=== PATIENT | male | born 1960 | race Caucasian/White ===

== ENCOUNTER 2018-10-07 09:25 | Emergency (ER) | payer BC, OTHER ==
[~2018-10-07] VITALS: Ht 165.1 cm; Wt 85.3 kg
[~2018-10-07 09:25] MED LIST: HYDR-4209 PO; IBUP200C5 PO
--- NOTE | 2018-10-07 09:41 | NUR ---
PT BIB SELF C/O WORSENING R FLANK PAIN FOR 3 DAYS, PT IS AAOX4, NOT IN RESPIRATORY DISTRESS, HOOKED TO MONITOR, KEPT RESTED AND COMFORTABLE, WILL CONTINUE TO MONITOR.
--- NOTE | 2018-10-07 09:57 | NUR ---
SEEN AND EXAMINED BY .
[2018-10-07] MEDS ORDERED: KETOROLAC TROMETHAMINE INJ 30 MG/ML VIAL IV ONE (10:00)
[2018-10-07] MEDS ORDERED: ONDANSETRON HCL/PF 4 MG/2 ML VIAL IVP ONE (10:00)
[2018-10-07] MEDS ORDERED: KETOROLAC TROMETHAMINE 15 MG/ML VIAL ONE (10:00)
[2018-10-07] MEDS ORDERED: IV NS 0.9% 1,000 ML BAG IV ONE (10:00)
[2018-10-07] MEDS ORDERED: MORPHINE SULFATE INJ 2 MG/ML DISP.SYRIN IV ONE (10:00)
--- NOTE | 2018-10-07 10:00 | NUR ---
IV LINE ESTABLISHED, BLOOD DRAWNED AND SENT TO LAB.
[2018-10-07] MEDS ORDERED: ONDANSETRON HCL/PF 4 MG/2 ML VIAL ONE (10:01)
[2018-10-07] MEDS ORDERED: MORPHINE SULFATE INJ 4 MG/ML DISP.SYRIN ONE (10:01)
--- NOTE | 2018-10-07 10:07 | NUR ---
URINE SPECIMEN PROVIDE BUT UNABLE TO PROVIDE URINE SPECIMEN.
[2018-10-07 10:09] LABS: BASOPHILS % (AUTO) 0.5 % (0.0-2.0); EOSINOPHILS % (AUTO) 0.9 % (0.0-6.0); HEMATOCRIT 42 % (39-51); HEMOGLOBIN 14.9 g/dL (13.5-17.5); LYMPHOCYTES # (AUTO) 2.4 /CMM (0.8-4.8); LYMPHOCYTES % (AUTO) 27.9 % (20.0-44.0); MEAN CORPUSCULAR HGB CONC 36 g/dl (31.0-36.0); MEAN CORPUSCULAR VOLUME 89 fL (80-96); MONOCYTES # (AUTO) 0.5 /CMM (0.1-1.30); MONOCYTES % (AUTO) 5.6 % (2.0-12.0); NEUTROPHILS # (AUTO) 5.5 /CMM (1.8-8.9); NEUTROPHILS % (AUTO) 65.1 % (43.0-81.0); PLATELET COUNT (AUTO) 206 /CMM (150-450); RED BLOOD CELL COUNT(AUTO) 4.69 MIL/uL (4.5-6.0); WHITE BLOOD COUNT (AUTO) 8.5 K/uL (4.3-11.0)
--- NOTE | 2018-10-07 10:16 | NUR ---
PT IS WHEELED TO CT SCAN VIA WHEELCHAIR.
[2018-10-07 10:20] LABS: CALCIUM, SERUM 9.1 mg/dL (8.5-10.1); CARBON DIOXIDE 29 mmol/L (21-32); CHLORIDE 101 mmol/L (98-107); CREATININE 1.1 mg/dL (0.6-1.3); GLUCOSE 130 mg/dL (74-106); POTASSIUM 3.3 mmol/L (3.5-5.1); SODIUM SERUM 138 mmol/L (136-145); UREA NITROGEN, BLOOD 17 mg/dL (7-18)
[2018-10-07 10:25] LABS: ALANINE AMINOTRANSFERASE 28 U/L (12-78); ALBUMIN 4.2 g/dL (3.4-5.0); ALKALINE PHOSPHATASE 123 U/L (46-116); ASPARTATE AMINOTRANSFERASE 23 U/L (15-37); BILIRUBIN,DIRECT 0.1 mg/dL (0.0-0.2); BILIRUBIN,TOTAL 0.6 mg/dL (0.2-1.0); LIPASE 121 U/L (73-393); TOTAL PROTEIN, SERUM 7.1 g/dL (6.4-8.2)
--- NOTE | 2018-10-07 10:30 | NUR ---
URINE SPECIMEN COLLECTED AND SENT TO LAB.
--- NOTE | 2018-10-07 10:39 | NUR ---
WAREHOUSE RECEIVING CLERK AT BEDSIDE FOR US.
[2018-10-07 10:46] LABS: APPEARANCE,URINE Clear (CLEAR); BILIRUBIN,URINE Negative (NEGATIVE); BLOOD, URINE Negative Ery/uL (NEGATIVE); COLOR,URINE Yellow (YELLOW); KETONES,URINE Negative (NEGATIVE); LEUKOCYTE ESTERASE ,URINE Negative (NEGATIVE); NITRITE, URINE Negative (NEGATIVE); PH,URINE 5.5 (5.0-8.0); PROTEIN,URINE Negative (NEGATIVE); UGLUCOSE Negative (NEGATIVE); UROBILINOGEN,URINE 0.2 EU/dL (0.2)
--- NOTE | 2018-10-07 11:45 | NUR ---
IV removed. Catheter intact and site benign. Pressure and 4x4 applied to site. No bleeding noted. Patient discharged to home in stable condition. Written and verbal after care instructions given. Patient verbalizes understanding of instruction.
[2018-10-07 11:46] VITALS: BP 132/77
== END 2018-10-07 11:49 | disposition home or self-care (01) ==
LOC: ER 09:25
DX: R10.31 Right lower quadrant pain (principal); R10.11 Right upper quadrant pain; Z95.5 Presence of coronary angioplasty implant and graft; Z87.442 Personal history of urinary calculi
CPT/HCPCS: 36415; 74176; 80048; 80076; 81001; 83690; 84484; 85025; 85730; 96374; 96375; 99284; J2270; J2405; J7030; 81000-TC; J1885

== ENCOUNTER 2018-10-10 09:54 | Emergency (ER) | payer BC ==
[~2018-10-10] VITALS: Ht 165.1 cm; Wt 83.9 kg
--- NOTE | 2018-10-10 10:02 | NUR ---
BIB , FROM HOME, C/O LOWER BACK PAIN x 6 DAYS, DENIES INJURY, PS 10/10, INCREASING PAIN, WORST TODAY. TO ER BED 1, HOOKED TO MONITOR, CHANGED TO GOWN, PROVIDED W WARM BLANKET, AWAITING MD YUEN. Addendum: 10/10/18 at 1016 by ANNETTA SHANTEL , FROM HOME, C/O LOWER BACK PAIN x 6 DAYS, DENIES INJURY, PS 10/10, INCREASING PAIN, WORST TODAY. TO ER BED 4, HOOKED TO MONITOR, CHANGED TO GOWN, PROVIDED W WARM BLANKET, AWAITING MD YUEN.
--- NOTE | 2018-10-10 10:19 | NUR ---
DR COLON AT BEDSIDE
[2018-10-10] MEDS ORDERED: ONDANSETRON HCL/PF 4 MG/2 ML VIAL IVP ONE (10:30)
[2018-10-10] MEDS ORDERED: IV NS 0.9% 1,000 ML BAG IV ONE (10:30)
[2018-10-10] MEDS ORDERED: HYDROMORPHONE INJ 2 MG/ML DISP.SYRIN IV ONE (10:30)
[2018-10-10] MEDS ORDERED: KETOROLAC TROMETHAMINE INJ 30 MG/ML VIAL IV ONE (10:30)
[2018-10-10 10:32] LABS: APPEARANCE,URINE Clear (CLEAR); BILIRUBIN,URINE Negative (NEGATIVE); BLOOD, URINE Negative Ery/uL (NEGATIVE); COLOR,URINE Yellow (YELLOW); KETONES,URINE Negative (NEGATIVE); LEUKOCYTE ESTERASE ,URINE Negative (NEGATIVE); NITRITE, URINE Negative (NEGATIVE); PROTEIN,URINE Negative (NEGATIVE); UGLUCOSE Negative (NEGATIVE); UROBILINOGEN,URINE 0.2 EU/dL (0.2)
[2018-10-10 10:35] LABS: BASOPHILS % (AUTO) 0.3 % (0.0-2.0); EOSINOPHILS % (AUTO) 2.2 % (0.0-6.0); HEMATOCRIT 39 % (39-51); LYMPHOCYTES # (AUTO) 1.6 /CMM (0.8-4.8); MEAN CORPUSCULAR HGB CONC 36 g/dl (31.0-36.0); MEAN CORPUSCULAR VOLUME 88 fL (80-96); MONOCYTES # (AUTO) 0.4 /CMM (0.1-1.30); MONOCYTES % (AUTO) 6.1 % (2.0-12.0); NEUTROPHILS # (AUTO) 5.1 /CMM (1.8-8.9); NEUTROPHILS % (AUTO) 69.4 % (43.0-81.0); PLATELET COUNT (AUTO) 173 /CMM (150-450); RED BLOOD CELL COUNT(AUTO) 4.46 MIL/uL (4.5-6.0); WHITE BLOOD COUNT (AUTO) 7.3 K/uL (4.3-11.0)
[2018-10-10 10:42] LABS: CALCIUM, SERUM 8.9 mg/dL (8.5-10.1); CREATININE 1.2 mg/dL (0.6-1.3)
[2018-10-10 10:48] LABS: ALBUMIN 3.7 g/dL (3.4-5.0); BILIRUBIN,DIRECT 0.1 mg/dL (0.0-0.2); BILIRUBIN,TOTAL 0.6 mg/dL (0.2-1.0); TOTAL PROTEIN, SERUM 6.6 g/dL (6.4-8.2)
[2018-10-10] MEDS ORDERED: ONDANSETRON HCL/PF 4 MG/2 ML VIAL ONE (10:51)
[2018-10-10] MEDS ORDERED: KETOROLAC TROMETHAMINE INJ 30 MG/ML VIAL ONE (10:51)
[2018-10-10] MEDS ORDERED: HYDROMORPHONE 1 MG/1 ML DISP.SYRIN ONE (10:51)
--- NOTE | 2018-10-10 11:02 | NUR ---
WASTED DILAUDID 0.5MG IV, WITNESSED WASTE OF DILAUDID BY CONCHIS BLISS RN.
--- NOTE | 2018-10-10 11:56 | NUR ---
PT REQUESTED FOR CD COPY OF IMAGES. MADE MD AWARE. CALLED RADIOLOGY DEPT.
--- NOTE | 2018-10-10 12:06 | NUR ---
Provided w CD of CT scan images. IV removed. Catheter intact and site benign. Pressure and 4x4 applied to site. No bleeding noted.Patient discharged to home in stable condition. Written and verbal after care instructions given. Patient verbalizes understanding of instruction.
[2018-10-10 12:37] VITALS: BP 148/97
== END 2018-10-10 12:07 | disposition home or self-care (01) ==
LOC: ER 09:57
DX: R10.11 Right upper quadrant pain (principal); R10.31 Right lower quadrant pain; Z87.442 Personal history of urinary calculi; Z95.818 Presence of other cardiac implants and grafts
CPT/HCPCS: 36415; 74176; 80048; 80076; 81001; 85025; 96374; 96375; 99284; J1170; J1885; J2405; J7030; 81000-TC

== ENCOUNTER 2019-10-12 11:00 | Outpatient (CLI) | payer MEDICARE, OTHER | END 2019-10-12 23:59 | disposition home or self-care (01) | LOC: WOU 11:00 | PROVIDERS: ATTEND Podiatrist Foot & Ankle Surgery | DX: M10.071 Idiopathic gout, right ankle and foot (principal); B35.1 Tinea unguium; R60.0 Localized edema; M79.675 Pain in left toe(s); M79.674 Pain in right toe(s); Z79.82 Long term (current) use of aspirin | CPT/HCPCS: 73630 ×2; 87102; G0463 ==

== ENCOUNTER 2019-10-26 10:30 | Outpatient (CLI) | payer MEDICARE, OTHER ==
[2019-10-26] MEDS ORDERED: TRIAMCINOLONE ACETONIDE SUSP 40 MG/ML 1 ML IM ONE (10:31)
[2019-10-26] MEDS ORDERED: ETHYL CHLORIDE SPRAY 1 EA BOTTLE TP ONE (10:31)
[2019-10-26] MEDS ORDERED: LIDOCAINE HCL/PF 1% 30 ML SDV IJ ONE (10:31)
== END 2019-10-26 23:59 | disposition home or self-care (01) ==
LOC: WOU 10:30
PROVIDERS: ATTEND Podiatrist Foot & Ankle Surgery
DX: M10.071 Idiopathic gout, right ankle and foot (principal); M20.21 Hallux rigidus, right foot; R60.0 Localized edema; M79.675 Pain in left toe(s); M79.674 Pain in right toe(s); B35.1 Tinea unguium; Z79.82 Long term (current) use of aspirin
CPT/HCPCS: 20600; J3490

== ENCOUNTER 2019-11-16 09:45 | Outpatient (CLI) | payer MEDICARE, OTHER ==
[2019-11-16] MEDS ORDERED: LIDOCAINE HCL/MPF 1% 30 ML VIAL IJ ONE (10:54)
[2019-11-16] MEDS ORDERED: TRIAMCINOLONE ACETONIDE SUSP 40 MG/ML VIAL IM ONE (11:00)
== END 2019-11-16 23:59 | disposition home or self-care (01) ==
LOC: WOU 09:45
PROVIDERS: ATTEND Podiatrist Foot & Ankle Surgery
DX: M10.071 Idiopathic gout, right ankle and foot (principal); M20.21 Hallux rigidus, right foot; B35.1 Tinea unguium; M79.675 Pain in left toe(s); M79.674 Pain in right toe(s); R60.0 Localized edema; Z79.82 Long term (current) use of aspirin
CPT/HCPCS: 20600; J3301; J3490

== ENCOUNTER 2021-03-15 13:41 | Emergency (ER) | payer MEDICARE, OTHER ==
[~2021-03-15] VITALS: Ht 167.6 cm; Wt 84.8 kg
--- NOTE | 2021-03-15 14:09 | NUR ---
BIBS FOR C/O RLQ ABDOMINAL PAIN 09/09 SUDDEN ONSET X 1 HR. FEVER BODYACHES X 1 WEEK ALSO STS SYNCOPAL EPISODE YESTERDAY. DENIES N/V AT THIS TIME. IN ROOM AIR AND DENIES SOB. RESPIRATION REGULAR AND UNLABORED. WILL CONTINUE TO MONITOR THE PATIENT.
--- NOTE | 2021-03-15 14:32 | NUR ---
DR SLOAN AT THE BEDSIDE
[2021-03-15] MEDS ORDERED: KETOROLAC TROMETHAMINE INJ 30 MG/ML VIAL IV ONE (15:00)
--- NOTE | 2021-03-15 15:00 | NUR ---
covid swab done and sent to the lab.
[2021-03-15] MEDS ORDERED: KETOROLAC TROMETHAMINE INJ 30 MG/ML VIAL ONE (15:14)
--- NOTE | 2021-03-15 15:19 | NUR ---
x-ray tech at the bedside
--- NOTE | 2021-03-15 15:21 | NUR ---
THE PATIENT IS TAKEN TO CT VIA [facility]
--- NOTE | 2021-03-15 15:35 | NUR ---
THE PATIENT IS BACK FROM CT VIA [facility]
[2021-03-15 16:42] LABS: BASOPHILS % (AUTO) 0.3 % (0.0-2.0); EOSINOPHILS % (AUTO) 0.2 % (0.0-6.0); HEMATOCRIT 41 % (39-51); HEMOGLOBIN 14.4 g/dL (13.5-17.5); LYMPHOCYTES # (AUTO) 1.2 K/uL (0.8-4.8); LYMPHOCYTES % (AUTO) 25.7 % (20.0-44.0); MEAN CORPUSCULAR HGB CONC 35 g/dl (31.0-36.0); MEAN CORPUSCULAR VOLUME 88 fL (80-96); MONOCYTES # (AUTO) 0.3 K/uL (0.1-1.30); MONOCYTES % (AUTO) 7.3 % (2.0-12.0); NEUTROPHILS # (AUTO) 3.1 K/uL (1.8-8.9); NEUTROPHILS % (AUTO) 66.5 % (43.0-81.0); PLATELET COUNT (AUTO) 127 K/uL (150-450); RED BLOOD CELL COUNT(AUTO) 4.58 MIL/uL (4.5-6.0); WHITE BLOOD COUNT (AUTO) 4.7 K/uL (4.3-11.0)
[2021-03-15 16:54] LABS: ALANINE AMINOTRANSFERASE 41 U/L (12-78); ALBUMIN 3.9 g/dL (3.4-5.0); ALKALINE PHOSPHATASE 79 U/L (46-116); ASPARTATE AMINOTRANSFERASE 45 U/L (15-37); BILIRUBIN,DIRECT 0.2 mg/dL (0.0-0.2); BILIRUBIN,TOTAL 0.7 mg/dL (0.2-1.0); CALCIUM, SERUM 8.6 mg/dL (8.5-10.1); CARBON DIOXIDE 28 mmol/L (21-32); CHLORIDE 97 mmol/L (98-107); CREATININE 1.6 mg/dL (0.6-1.3); GLUCOSE 91 mg/dL (74-106); LIPASE 177 U/L (73-393); POTASSIUM 3.7 mmol/L (3.5-5.1); SODIUM SERUM 139 mmol/L (136-145); TOTAL PROTEIN, SERUM 7.5 g/dL (6.4-8.2); UREA NITROGEN, BLOOD 25 mg/dL (7-18)
--- NOTE | 2021-03-15 17:05 | NUR ---
PT UNABLE TO URINATE AT THIS TIME. URINAL PROVIDED AT BEDSIDE.
--- NOTE | 2021-03-15 17:26 | NUR ---
PT COVID ANTIGEN (+) NATHALIA STOVALL AWARE. CONTRACT DROPLET ISOLATION IN PLACE
[2021-03-15] MEDS ORDERED: IV NS 0.9% 1,000 ML BAG IV ONE (17:30)
[2021-03-15 17:59] LABS: BILIRUBIN,URINE NEGATIVE (NEGATIVE); COLOR,URINE YELLOW (YELLOW); LEUKOCYTE ESTERASE ,URINE NEGATIVE (NEGATIVE); NITRITE, URINE NEGATIVE (NEGATIVE); PH,URINE 5.5 (5.0-8.0); PROTEIN,URINE 30 mg/dl (NEGATIVE); UGLUCOSE NEGATIVE (NEGATIVE)
[2021-03-15] MEDS ORDERED: HYDROCODONE/APAP 5/325MG TABLET ONE (18:24)
[2021-03-15] MEDS ORDERED: TAMSULOSIN 0.4 MG CAP.SR.24H ONE (18:25)
[2021-03-15] MEDS ORDERED: TAMSULOSIN 0.4 MG CAP.SR.24H PO ONE (18:30)
[2021-03-15] MEDS ORDERED: HYDROCODONE/APAP 5/325MG TABLET PO ONE (18:30)
[2021-03-15 18:41] LABS: BACTERIA,URINE RARE /HPF (None Seen); MUCUS,URINE Few /LPF (None Seen); RBC,URINE 0-2 /HPF (0-2); SQUAMOUS EPITHELIAL CELL,UR 0-2 /HPF (None Seen); URINE AMORPHOUS URATE Few /HPF (None Seen); WBC,URINE 0-2 /HPF (0-3)
[2021-03-15] MEDS ORDERED: DOXY-326 PO (18:44)
[2021-03-15] MEDS ORDERED: HYDR-3972 PO (18:44)
[2021-03-15] MEDS ORDERED: TAMS-12 PO (18:44)
[2021-03-15 19:04] VITALS: BP 105/61
--- NOTE | 2021-03-15 19:04 | NUR ---
The patient is alert and oriented x4. Denies pain. In room air and denies SOB. Respiration regular and unlabored. IV removed. Catheter intact and site benign. Pressure and 4x4 applied to site. No bleeding noted.Patient discharged to home in stable condition. Written and verbal after care instructions given. Patient verbalizes understanding of instruction.
== END 2021-03-15 19:05 | disposition home or self-care (01) ==
LOC: ER 13:46
DX: U07.1 COVID-19 (principal); N20.1 Calculus of ureter; I10 Essential (primary) hypertension
CPT/HCPCS: 36415; 71045; 74176; 80048; 80076; 81001; 83690; 84484; 85025; 87426; 93005; 96361; 96374; 99285; J1885; J7030; C9803

== ENCOUNTER 2023-10-15 13:51 | Emergency (ER) | payer MEDICARE, OTHER ==
[~2023-10-15] VITALS: Ht 165.1 cm; Wt 79.8 kg
[~2023-10-15 13:51] MED LIST changes: +DOXY-326 PO; +HYDR-3972 PO; +TAMS-12 PO
[2023-10-15] MEDS: IV NS 0.9% 1,000 ML BAG IV ONE (14:00)
[2023-10-15 14:41] LABS: BASOPHILS % (AUTO) 0.5 % (0.0-2.0); EOSINOPHILS # (AUTO) 0.2 K/uL (0.0-0.7); EOSINOPHILS % (AUTO) 1.9 % (0.0-6.0); HEMATOCRIT 41 % (39-51); LYMPHOCYTES # (AUTO) 2.8 K/uL (0.8-4.8); LYMPHOCYTES % (AUTO) 30.9 % (20.0-44.0); MEAN CORPUSCULAR HEMOGLOBIN 31 PG (26.0-33.0); MEAN CORPUSCULAR HGB CONC 34 g/dl (31.0-36.0); MEAN CORPUSCULAR VOLUME 90 fL (80-96); MONOCYTES # (AUTO) 0.5 K/uL (0.1-1.30); MONOCYTES % (AUTO) 5.9 % (2.0-12.0); NEUTROPHILS # (AUTO) 5.6 K/uL (1.8-8.9); NEUTROPHILS % (AUTO) 60.8 % (43.0-81.0); PLATELET COUNT (AUTO) 191 K/uL (150-450); RED BLOOD CELL COUNT(AUTO) 4.54 MIL/uL (4.5-6.0); RED CELL DISTRIBUTION WIDTH 13.1 % (11.5-15.0); WHITE BLOOD COUNT (AUTO) 9.2 K/uL (4.3-11.0)
[2023-10-15 15:01] LABS: ALBUMIN 3.8 g/dL (3.4-5.0); BILIRUBIN,DIRECT 0.2 mg/dL (0.0-0.2); BILIRUBIN,TOTAL 0.6 mg/dL (0.2-1.0); CALCIUM, SERUM 9.8 mg/dL (8.5-10.1); CREATININE 1.4 mg/dL (0.6-1.3); POTASSIUM 4.1 mmol/L (3.5-5.1); TOTAL PROTEIN, SERUM 6.9 g/dL (6.4-8.2)
[2023-10-15 16:05] LABS: APPEARANCE,URINE Clear (CLEAR); BILIRUBIN,URINE Negative (NEGATIVE); BLOOD, URINE Trace-intact Ery/uL (NEGATIVE); COLOR,URINE YELLOW (YELLOW); KETONES,URINE Negative (NEGATIVE); LEUKOCYTE ESTERASE ,URINE Negative (NEGATIVE); NITRITE, URINE Negative (NEGATIVE); PH,URINE 5.5 (5.0-8.0); PROTEIN,URINE Negative (NEGATIVE); UGLUCOSE Negative (NEGATIVE); UROBILINOGEN,URINE 0.2 EU/dL (0.2)
[2023-10-15] MEDS ORDERED: IBUP-1955 PO (16:14)
[2023-10-15] MEDS ORDERED: TAMS-12 PO (16:14)
[2023-10-15] MEDS ORDERED: HYDR-4303 PO (16:14)
[2023-10-15] MEDS ORDERED: ONDA4TAB5 PO (16:14)
[2023-10-15] MEDS ORDERED: KETOROLAC TROMETHAMINE 15 MG/ML VIAL ONE (16:18)
[2023-10-15] MEDS ORDERED: HYDROCODONE/APAP 5/325MG TABLET ONE (16:19)
[2023-10-15] MEDS ORDERED: ONDANSETRON HCL/PF 4 MG/2 ML VIAL ONE (16:19)
[2023-10-15] MEDS: HYDROCODONE/APAP 5/325MG TABLET PO ONE (16:21)
[2023-10-15] MEDS: KETOROLAC TROMETHAMINE 15 MG/ML VIAL IV ONE (16:22)
[2023-10-15] MEDS: ONDANSETRON HCL/PF 4 MG/2 ML VIAL IV ONE (16:23)
[2023-10-15 16:31] LABS: ADD URINE CULTURE NO; BACTERIA,URINE 1+ /HPF (None Seen); SQUAMOUS EPITHELIAL CELL,UR None Seen /HPF (None Seen); WBC,URINE 0-2 /HPF (0-3)
[2023-10-15 16:32] LABS: CALCIUM OXALATE CRYSTALS,UR Few /HPF (None Seen); MUCUS,URINE Few /LPF (None Seen)
[2023-10-15 16:37] VITALS: BP 145/77; TEMP 98.2; O2SAT 97
[2023-10-15] MEDS ORDERED: HYDR-3980 PO (17:46)
== END 2023-10-15 16:37 | disposition home or self-care (01) ==
LOC: ER 14:09
DX: N13.2 Hydronephrosis with renal and ureteral calculous obstruction (principal); R10.31 Right lower quadrant pain; I25.10 Atherosclerotic heart disease of native coronary artery without angina pectoris; Z95.5 Presence of coronary angioplasty implant and graft; Z87.39 Personal history of other diseases of the musculoskeletal system and connective tissue
CPT/HCPCS: 99285; 74176; 96374; 96361; 96375; 85025; 80048; 83690; 80076; 81001; 36415; J2405; J7030; J1885

== ENCOUNTER 2023-11-08 19:32 | Emergency (ER) | payer MEDICARE, OTHER ==
[~2023-11-08] VITALS: Ht 172.7 cm; Wt 79.4 kg
[~2023-11-08 19:32] MED LIST changes: +HYDR-3980 PO; +HYDR-4303 PO; +IBUP-1955 PO; +ONDA4TAB5 PO
[2023-11-08 20:45] LABS: APPEARANCE,URINE CLEAR (CLEAR); BILIRUBIN,URINE NEGATIVE (NEGATIVE); BLOOD, URINE 1+ Ery/uL (NEGATIVE); COLOR,URINE YELLOW (YELLOW); KETONES,URINE NEGATIVE (NEGATIVE); LEUKOCYTE ESTERASE ,URINE NEGATIVE (NEGATIVE); NITRITE, URINE NEGATIVE (NEGATIVE); PROTEIN,URINE NEGATIVE (NEGATIVE); UGLUCOSE NEGATIVE (NEGATIVE); UROBILINOGEN,URINE 0.2 EU/dL (0.2)
[2023-11-08 20:56] LABS: ADD URINE CULTURE NO; BACTERIA,URINE Rare /HPF (None Seen); MUCUS,URINE Few /LPF (None Seen); SQUAMOUS EPITHELIAL CELL,UR None Seen /HPF (None Seen); WBC,URINE 0-2 /HPF (0-3)
[2023-11-08] MEDS ORDERED: KETOROLAC TROMETHAMINE INJ 30 MG/ML VIAL ONE (21:02)
[2023-11-08 21:11] LABS: BASOPHILS % (AUTO) 0.3 % (0.0-2.0); EOSINOPHILS # (AUTO) 0.2 K/uL (0.0-0.7); EOSINOPHILS % (AUTO) 1.8 % (0.0-6.0); HEMATOCRIT 38 % (39-51); HEMOGLOBIN 13.3 g/dL (13.5-17.5); LYMPHOCYTES # (AUTO) 2.6 K/uL (0.8-4.8); LYMPHOCYTES % (AUTO) 28.9 % (20.0-44.0); MEAN CORPUSCULAR HEMOGLOBIN 31 PG (26.0-33.0); MEAN CORPUSCULAR HGB CONC 35 g/dl (31.0-36.0); MEAN CORPUSCULAR VOLUME 89 fL (80-96); MONOCYTES # (AUTO) 0.6 K/uL (0.1-1.30); MONOCYTES % (AUTO) 6.7 % (2.0-12.0); NEUTROPHILS # (AUTO) 5.7 K/uL (1.8-8.9); NEUTROPHILS % (AUTO) 62.3 % (43.0-81.0); PLATELET COUNT (AUTO) 171 K/uL (150-450); RED BLOOD CELL COUNT(AUTO) 4.28 MIL/uL (4.5-6.0); RED CELL DISTRIBUTION WIDTH 12.9 % (11.5-15.0); WHITE BLOOD COUNT (AUTO) 9.1 K/uL (4.3-11.0)
[2023-11-08] MEDS: IV NS 0.9% 1,000 ML BAG IV ONE (21:12)
[2023-11-08] MEDS: KETOROLAC TROMETHAMINE INJ 30 MG/ML VIAL IV ONE (21:12)
[2023-11-08 21:25] LABS: ALBUMIN 3.7 g/dL (3.4-5.0); BILIRUBIN,TOTAL 0.5 mg/dL (0.2-1.0); CALCIUM, SERUM 8.9 mg/dL (8.5-10.1); CREATININE 1.3 mg/dL (0.6-1.3); POTASSIUM 3.6 mmol/L (3.5-5.1); TOTAL PROTEIN, SERUM 6.3 g/dL (6.4-8.2)
[2023-11-08 21:35] LABS: BILIRUBIN,DIRECT 0.1 mg/dL (0.0-0.2)
[2023-11-08] MEDS ORDERED: MORPHINE SULFATE INJ 4 MG/ML DISP.SYRIN ONE (21:57)
[2023-11-08] MEDS: MORPHINE SULFATE INJ 2 MG/ML DISP.SYRIN IV ONE (22:04)
[2023-11-09] MEDS ORDERED: HYDROMORPHONE 1 MG/1 ML DISP.SYRIN ONE (00:27)
[2023-11-09] MEDS ORDERED: ONDANSETRON HCL/PF 4 MG/2 ML VIAL ONE (00:27)
[2023-11-09] MEDS: HYDROMORPHONE 1 MG/1 ML DISP.SYRIN IV ONE (00:37)
[2023-11-09] MEDS: ONDANSETRON HCL/PF - ER 4 MG/2 ML VIAL IV ONE (00:37)
[2023-11-09] MEDS ORDERED: KETO10TA2 PO (03:24)
[2023-11-09] MEDS ORDERED: TAMS-12 PO (03:24)
[2023-11-09] MEDS ORDERED: MORPHINE SULFATE INJ 2 MG/ML DISP.SYRIN ONE (05:29)
[2023-11-09] MEDS: MORPHINE SULFATE INJ 2 MG/ML DISP.SYRIN IV ONE (05:33)
[2023-11-09 05:44] VITALS: BP 124/80; TEMP 98; O2SAT 99
== END 2023-11-09 05:52 | disposition home or self-care (01) ==
LOC: ER 19:36 → UNDOADMIN 11-09 02:53 → MED 11-09 02:53 → ER 11-09 05:52
DX: N20.0 Calculus of kidney (principal); Z79.1 Long term (current) use of non-steroidal anti-inflammatories (NSAID); Z98.890 Other specified postprocedural states; Z79.891 Long term (current) use of opiate analgesic; Z79.899 Other long term (current) drug therapy
CPT/HCPCS: 99284; 96374; 96361; 96375 ×2; 85025; 80048; 87086; 83690; 80076; 81001; 36415; 96376; J2270 ×2; J1885; J7030; J2405 ×2; J1170